=== PATIENT | female | born 1965 | race Caucasian/White ===

== ENCOUNTER 2020-12-25 08:37 | Outpatient (CLI) | payer BC, SELFPAY ==
--- NOTE | ~2020-12-25 | DEXA_ITS ---
Bone Density Report Name: Romy Luong Age: 55 Sex: Female Ethnicity: White Date of : 1965 Indication: osteopenia; hysterectomy; Referring Provider: SIMONA SHEPHERD Study: Bone densitometry was performed. Exam Date: December 25, 2020 Accession number: [id number] Bone Density: Region BMD T-score Z-score Classification AP Spine (L1-L4) 0.856 -1.7 -0.7 Osteopenia Femoral Neck (Left) 0.485 -3.3 -2.3 Osteoporosis Total Hip (Left) 0.693 -2.0 -1.4 Osteopenia Total Hip Bilateral Avg 0.703 -2.0 -1.4 Osteopenia Femoral Neck (Right) 0.534 -2.8 -1.8 Osteoporosis Total Hip (Right) 0.711 -1.9 -1.3 Osteopenia World Health Organization criteria for BMD impression classify patients as: Normal (T-score at or above -1.0), Osteopenia (T-score between -1.0 and -2.5), or Osteoporosis (T-score at or below -2.5). 10-year Fracture Risk: FRAX not reported because: Some T-score for Spine Total or Hip Total or Femoral Neck at or below -2.5 Previous Exams: Region Exam Age BMD T-score BMD Change BMD Change Date g/cm2 vs Baseline vs Previous AP Spine(L1-L4) 12/25/2020 55 0.856 -1.7 -0.044(-4.9%)* 0.046(5.7%)* 12/12/2017 52 0.810 -2.2 -0.090(-10.0%) -0.090(-10.0%) 10/02/2015 49 0.900 -1.3 Total Hip(Left) 12/25/2020 55 0.693 -2.0 -0.048(-6.5%)* -0.022(-3.1%) 12/12/2017 52 0.715 -1.9 -0.026(-3.5%) -0.026(-3.5%) 10/02/2015 49 0.742 -1.6 Total Hip(Right) 12/25/2020 55 0.711 -1.9 -0.017(-2.3%) -0.009(-1.3%) 12/12/2017 52 0.720 -1.8 -0.008(-1.0%) -0.008(-1.0%) 10/02/2015 49 0.728 -1.8 *Denotes significance at 95% confidence level, LSC for AP Spine = 0.022 g/cm2, LSC for Total Hip = 0.027 g/cm2 Clinical Information Provided by Patient: Has used the following medications: Evista (i.e. raloxifene) Has the following medical conditions: Hysterectomy Patient maximum height was 65 Menopause Age: 41 No regular weight bearing exercise Does not regularly consume dairy products Drinks caffeinated beverages Onset of menses at age 13 Number of children 2 Impression: The patient has osteoporosis, based on the Left Femoral Neck T-score. No significant bone loss was observed. Discussion: HIGH RISK OF FRACTURE. BONE DENSITY IS UNDESIRABLY LOW AT ONE OR MORE SKELETAL SITES, CONSISTENT WITH OSTEOPOROSIS. ALSO, BONE DENSITY IS LOWER THAN EXPECTED FOR AGE AND SEX AT ONE OR MORE SKELETAL SITES; RECOMMEND A DILIGENT SEARCH FOR SECONDARY CAUSES OF BONE LO
--- NOTE | ~2020-12-25 | MM_ITS ---
EXAMINATION: MM screening rip BI w kathleen HISTORY: Screening mammogram TECHNIQUE: Craniocaudal and mediolateral oblique 3-D tomosynthesis images were obtained and synthetic 2-D images were generated. CAD analysis was submitted and interpreted. COMPARISON: 05/23/2017, 03/12/2016, 01/17/2015 bilateral digital screening mammogram examinations BREAST PARENCHYMAL COMPOSITION: There are scattered areas of fibroglandular density. FINDINGS: There is no evidence of suspicious mass, calcification, or architectural distortion to sugg est malignancy in either breast. There has been no suspicious interval change. IMPRESSION: 1. No mammographic evidence of malignancy. 2. Recommend routine screening mammography in one year. BI-RADS Category 1: Negative Reviewed, dictated and finalized at location A.
== END 2020-12-25 08:38 | disposition home or self-care (01) ==
LOC: ANHIMG 08:39
PROVIDERS: PCP Family Medicine; Visit Provider Obstetrics & Gynecology
DX: Z12.31 Encounter for screening mammogram for malignant neoplasm of breast (principal); Z78.0 Asymptomatic menopausal state; M85.89 Other specified disorders of bone density and structure, multiple sites; M81.0 Age-related osteoporosis without current pathological fracture
CPT/HCPCS: 77063; 77067; 77080

== ENCOUNTER 2021-04-08 07:41 | Outpatient (CLI) | payer BC, SELFPAY ==
--- NOTE | ~2021-04-08 | US_ITS ---
EXAMINATION: US thyroid EXAM DATE: 04/08/2021 08:19 INDICATION: Goiter. TECHNIQUE: Multiple grayscale and Doppler images of the thyroid were obtained (by a technologist who performed the scan) and subsequently reviewed. Individual nodules and recommendations may be reporte d in accordance with TI-RADS system as designated by the 2017 ACR White Paper TI-RADS committee. The re is no prior study for comparison. FINDINGS: The right thyroid lobe measures 4.3 x 1.4 x 1.0 cm, the left measuring 3.3 x 1.3 x 1.0 cm. There is d iffusely heterogeneous thyroid echogenicity. Thyroid dimensions are within normal size limits. No foc al suspicious nodules within the heterogeneous thyroid parenchyma. IMPRESSION: Heterogeneous, normal-sized thyroid parenchyma. Reviewed, dictated and finalized at location A.
== END 2021-04-08 07:42 | disposition home or self-care (01) ==
LOC: ANHIMG 07:46
PROVIDERS: PCP Family Medicine; Visit Provider Internal Medicine Endocrinology, Diabetes & Metabolism
DX: E04.9 Nontoxic goiter, unspecified (principal)
CPT/HCPCS: 76536

== ENCOUNTER 2022-02-22 17:16 | Outpatient (CLI) | payer BC, SELFPAY ==
--- NOTE | ~2022-02-22 | MM_ITS ---
EXAMINATION: MM screening [facility] BI w kathleen HISTORY: Screening mammogram, family history of breast cancer in her sister. TECHNIQUE: Craniocaudal and mediolateral oblique 3-D tomosynthesis images were obtained and synthetic 2-D images were generated. CAD analysis was submitted and interpreted. COMPARISON: 12/25/2020, 05/23/2017, 02/18/2016 BREAST PARENCHYMAL COMPOSITION: There are scattered areas of fibroglandular density. FINDINGS: A stable mass in the middle third of the right breast is consistent with a benign finding g iven the lack of interval change. There is no suspicious mass, calcification, or architectural distor tion to suggest malignancy in either breast. There has been no suspicious interval change. IMPRESSION: 1. No mammographic evidence of malignancy. 2. Recommend routine screening mammography in one year. BI-RADS Category 2: Benign finding(s). Reviewed, dictated and finalized at location A.
== END 2022-02-22 17:17 | disposition home or self-care (01) ==
LOC: ANHIMG 17:17
PROVIDERS: PCP Family Medicine; Visit Provider Obstetrics & Gynecology Gynecology
DX: Z12.31 Encounter for screening mammogram for malignant neoplasm of breast (principal)
CPT/HCPCS: 77063; 77067